=== PATIENT | male | born 2000 | race Caucasian/White ===

== ENCOUNTER 2019-12-22 15:17 | Emergency (ER) | payer BC, SELFPAY ==
[~2019-12-22] VITALS: Ht 167.6 cm; Wt 100.0 kg
[2019-12-22 15:39] VITALS: BP 135/80
== END 2019-12-22 16:12 | disposition home or self-care (01) ==
LOC: ER 15:23
DX: J06.9 Acute upper respiratory infection, unspecified (principal); Z20.828 Contact with and (suspected) exposure to other viral communicable diseases
CPT/HCPCS: 36415; 87635; 99283